=== PATIENT | female | born 1995 | race Caucasian/White ===

== ENCOUNTER 2018-11-27 12:06 | Emergency (ER) | payer OTHER ==
[~2018-11-27] VITALS: Ht 162.6 cm; Wt 86.8 kg
[2018-11-27 12:11] VITALS: BP 118/58; Ht 162.6 cm; Wt 86.8 kg
== END 2018-11-27 13:35 | disposition home or self-care (01) ==
LOC: ED 12:06
DX: M54.6 Pain in thoracic spine (principal); W01.0XXA Fall on same level from slipping, tripping and stumbling without subsequent striking against object, initial encounter; Y93.89 Activity, other specified; Y92.89 Other specified places as the place of occurrence of the external cause; Y99.8 Other external cause status
CPT/HCPCS: 72072; J1885; Q0092